=== PATIENT | female | born 1955 | race Caucasian/White ===

== ENCOUNTER 2024-06-02 06:10 | Day surgery (SDC) | payer OTHER ==
[2024-05-24 08:38] VITALS: BP 140/82
[2024-05-24 08:51] LABS: PH,URINE 6.5 (5.0-8.0); URINE APPEARANCE Clear; URINE BILIRRUBIN Negative (NEGATIVE); URINE BLOOD Small; URINE COLOR Yellow; URINE GLUCOSE Negative (NEGATIVE); URINE KETONE Negative (NEGATIVE); URINE LEUKOCYTE Trace; URINE NITRATE Negative; URINE PROTEIN Negative (NEGATIVE); URINE UROBILINOGEN 0.2 E.U./dl
[2024-05-24 08:54] LABS: URINE BACTERIA 17.6 uL (0.0-1933); URINE EPITHELIAL CELLS 9.2 uL (0.0-38.8); URINE RBC 20.4 uL (0.0-20.8); URINE WBC 16.1 uL (0.0-23.2)
[2024-05-24 09:04] LABS: URINE CAST 0.15 uL (0.0-1.40)
[2024-05-24 09:11] LABS: HEMATOCRIT 41.5 % (36.0-45.00); HEMOGLOBIN 14.1 g/dL (12.0-15.00); MEAN CELL VOLUME 89.6 fL (80.00-100.00); MEAN CORPUSCULAR HEMOGLOBIN 30.5 pg (27.00-32.0); MEAN CORPUSCULAR HGB CONC 34.1 g/dl (32.0-36.0); PLATELET COUNT 347 K/uL (150-450); RED BLOOD COUNT 4.62 M/uL (4.00-6.00); RED CELL DISTRIBUTION WIDTH 14.1 % (11.5-14.5)
[2024-05-24 09:15] LABS: INR 1.05; PARTIAL THROMBOPLASTIN TIME 27.5 SECONDS (22.0-34.0); PROTHROMBIN TIME 11.4 SECONDS (9.0-11.5)
[2024-05-24 09:44] LABS: ALBUMIN 3.5 gm/dL (3.4-5.0); BILIRUBIN TOTAL 0.51 mg/dL (0.3-1.2); CALCIUM 9.1 mg/dL (8.5-10.1); CREATININE SERUM 0.63 mg/dL (0.55-1.02); GFR 93.42; GLOBULINA 3.8 G/DL (2.4-3.5); POTASSIUM 4.19 mEq/L (3.5-5.1); TOTAL PROTEIN 7.3 gm/dL (6.4-8.2); TSH 1.29 uIU/mL (0.358-3.74)
[~2024-06-02] VITALS: Ht 162.6 cm; Wt 99.8 kg
[~2024-06-02 06:10] MED LIST: NEURONTIN600 M1 PO
[2024-06-02] MEDS ORDERED: CEFOXITIN SODIUM 2,000 MG VIAL IV ONE (14:15)
[2024-06-02] MEDS ORDERED: POVIDONE-IODINE 118 ML BOTT TOP ONE (14:15)
[2024-06-02] MEDS ORDERED: MORPHINE SULFATE 4 MG/ML VIAL IV PRN (17:45)
[2024-06-02] MEDS ORDERED: PROMETHAZINE HCL 50 MG/ML AMPUL IM ONE (17:45)
[2024-06-02] MEDS ORDERED: MONODOX100 MG PO (17:49)
[2024-06-02] MEDS ORDERED: Tylenol #3 PO (17:49)
== END 2024-06-02 18:00 | disposition home or self-care (01) ==
LOC: CIR.AMB 06:10
PROVIDERS: ATTEND Obstetrics & Gynecology
DX: D25.0 Submucous leiomyoma of uterus (principal); N84.0 Polyp of corpus uteri; Z88.6 Allergy status to analgesic agent; Z88.1 Allergy status to other antibiotic agents; Z88.2 Allergy status to sulfonamides